=== PATIENT | male | born 1950 ===

== ENCOUNTER 2018-01-30 15:21 | Emergency (ER) | payer MEDICARE ==
--- NOTE | 2018-01-30 16:41 | UC ---
Skin Complaint HPI - HPI Summary HPI Summary: 67 y/o male presents to the urgent care c/o tick located near left elbow region. He noticed today after mowing grass. He couldn't remove it. No Hx of tick bites in the past. Pt denies fever. HAWK, joint pains, SOB, palpitations, abdominal pain, N/V/D - History of Current Complaint Time Seen by Provider: 01/30/18 16:39 Stated Complaint: TICK IN ARM Hx Obtained From: Patient Onset/Duration: Sudden Onset, Lasting Hours - 1 hr ago, Still Present Skin Exposure Onset/Duration: Hours Ago - 1 hrs ago Timing: Constant Onset Severity: Mild Current Severity: Mild Pain Intensity: 0 Pain Scale Used: 0-10 Numeric Location: Discrete - tick bite on left elbow Character: Pruritus, Redness Aggravating Factor(s): Touch Alleviating Factor(s): Nothing Associated Signs & Symptoms: Positive: Rash Related History: Possible Reaction to: Insect - Allergy/Home Medications Allergies/Adverse Reactions: Allergies Allergy/AdvReac Type Severity Reaction Status Date / Time No Known Allergies Allergy Verified 01/30/18 16:41 Home Medications: Home Medications NK [No Home Medications Reported] 01/30/18 [History Confirmed 01/30/18] Review of Systems Constitutional: Fever Skin: Rash - tick bite on left elbow, tick still present Eyes: Negative ENT: Negative Respiratory: Negative Cardiovascular: Negative Gastrointestinal: Negative Genitourinary: Negative Motor: Negative Neurovascular: Negative Musculoskeletal: Negative Neurological: Negative Psychological: Negative Is Patient Immunocompromised?: No All Other Systems Reviewed And Are Negative: Yes PMH/Surg Hx/FS Hx/Imm Hx Previously Healthy: Yes - Pt denies PMHX - Family History Known Family History: Positive: Hypertension - Social History Occupation: Retired Lives: With Family Physical Exam - Summary Physical Exam Summary: Vital Signs Reviewed: Yes General: well developed, well nourished male sitting in the examining table w/o any apparent distress. Eyes: Positive: Conjunctiva Clear - PERRLA, EOMI ENT: Positive: Normal ENT inspection, Hearing grossly normal, Pharynx normal, TMs normal Neck: Positive: Supple, Nontender, No Lymphadenopathy Respiratory: Positive: Chest nontender, Lungs clear, Normal breath sounds Cardiovascular: Positive: RRR, No Murmur, Pulses Normal Abdomen Description: Positive: Nontender, No Organomegaly, Soft. Negative: CVA Tenderness (R), CVA Tenderness (L) Bowel Sounds: Positive: Present Musculoskeletal: Positive: Strength Intact, ROM Intact, No Edema Neurological Exam: Normal Psychological Exam: Normal Skin: Positive: rashes - Dorsal aspect of Left elbow with tick bite with surrounding erythema, non tender to palpation. tick no longer present, no swelling or drainage observed. Triage Information Reviewed: Yes Course/Dx - Course Course Of Treatment: 67 y/o male presents to the urgent care c/o tick located near left elbow region. He noticed today after mowing grass. He couldn't remove it. No Hx of tick bites in the past. Pt denies fever. HAWK, joint pains, SOB, palpitations, abdominal pain, N/V/D. Hx obtained. Pt w/ Dorsal aspect of Left elbow with tick bite with surrounding erythema, non tender to palpation. tick no longer present, no swelling or drainage observed on examination. Tick was removed from left elbow using twister technique. After tick removal and the skin cleansing. Bacitracin oint applied. Antibiotic prophylaxis with Doxycycline given to the patient to prevent lyme Disease.. Pt tolerated well medication. Pt advised to observe the area for the development or Erythema Migrans for upto 30 days following exposure. Advised if he develops fever or erythema Migrans to return to the clinic or PCP for further treatment .Pt understood and agreed with plan of care. - Differential Diagnoses - Skin Complaint Differential Diagnoses: Abscess, Cellulitis, MRSA, Tick Born Illness, Other - insect bite, bee sting - Diagnoses Provider Diagnoses: 1- Dorsal side of left elbow tick bite Discharge - Sign-Out/Discharge Documenting (check all that apply): Discharge/Admit/Transfer - D/C home - Discharge Plan Condition: Stable Disposition: HOME Patient Education Materials: Tick Bite (ED) Referrals: Giovanny Giang MD [Primary Care Provider] - 2 Weeks Bettye GEORGE,Jordon Moreno [Medical Doctor] - If Needed Additional Instructions: 1- Please observe the area for the development or Erythema Migrans for upto 30 days following exposure. Components of the tick saliva can cause transient erythema that should not be confused with Erythema Migrans. If you develop the bull's eye rash, fever, joint pains please return to the urgent care or f/u with your PCP or DR Wen who specializes on Lyme disease for further management. 2-Antibiotic prophylaxis with Doxycycline was given to you today to prevent lyme Disease. Lyme serology can be drawn in 2 weeks with your PCP to r/o Lyme disease since there is probability of negative results at early exposure. - Billing Disposition and Condition Condition: STABLE Disposition: Home
[2018-01-30 16:42] VITALS: BP 128/80
[2018-01-30] MEDS ORDERED: DOXYcycline CAP(*) 100 MG PO ONE (16:58)
== END 2018-01-30 17:32 | disposition home or self-care (01) ==
LOC: UCCORT 15:21
DX: S50.362A Insect bite (nonvenomous) of left elbow, initial encounter (principal); W57.XXXA Bitten or stung by nonvenomous insect and other nonvenomous arthropods, initial encounter; Y93.9 Activity, unspecified; Y99.9 Unspecified external cause status
CPT/HCPCS: 99202; A9270-GY; G0463